=== PATIENT | female | born 1940 | race Caucasian/White ===

== ENCOUNTER 2017-01-25 11:18 | Inpatient (IN) | payer MEDICARE ==
[~2017-01-25] VITALS: Ht 170.2 cm; Wt 81.6 kg
--- NOTE | 2017-01-28 09:05 | ER ---
ADMIT: 01/25/2017 RM/LOC: 503 [facility]#: [id number] [facility] [id number] [address] [address] MARTINEZ ESCALANTEEN Mere [address] [place] [address] Emergency Room Report SEX: F AGE: 76 : 1940 DATE: 01/25/2017 CHIEF COMPLAINT: Fall, injury to left leg. HISTORY OF PRESENT ILLNESS: This is a pleasant 76-year-old, white female, who presents [place] the [place] to [place]. She did arrive by EMS. She received fentanyl in the field for pain control. Continues to rate her pain as an 8/10. Complaining primarily of left hip and thigh pain. She states it is starting to radiate lower down in her left leg. Denies hitting her head. No loss of consciousness. She remembers coming to the hospital. She otherwise felt well today. Did complain of some urinary frequency. Definitely has some weakness now which she thinks is secondary to her pain. PAST MEDICAL HISTORY: 1. Coronary artery disease. 2. Diabetes. 3. Hypertension. 4. Hyperlipidemia. 5. Sleep apnea. COURSE IN THE EMERGENCY ROOM: PHYSICAL EXAMINATION: GENERAL: The patient is seen and examined. She is afebrile and nontoxic. She is in a mild amount of distress secondary to the pain. NECK: Nontender. She has painless range of motion. HEENT: Eyes; pupils are equal and reactive. Extraocular muscles intact. ENT; normal airway. RESPIRATORY: Chest is nontender. No respiratory distress. No wheezes, rhonchi, or rales. HEART: Regular rate and rhythm. ABDOMEN: Soft and nontender. NEURO: She is alert and oriented x4. Sensation is normal in the lower extremities compared bilaterally. SKIN: Warm, dry, and intact. EXTREMITIES: She does have some tenderness to palpation over the proximal left femur. The leg is slightly shortened and externally rotated. She does have good pulses compared bilaterally. Skin is warm and dry in the distal extremities. She was given morphine and Zofran for pain control in the department. I did get basic labs on her today. Consulted with Dr. Jack who saw the patient and recommended ORIF of the left hip. I did phone Dr. Rodriguez, her primary care provider and narrated him about the situation. He will admit the patient for planned procedure tomorrow. IMPRESSION: ADMIT: 01/25/2017 RM/LOC: 503 [facility] MR#: [id number] [address] [address] ALYSSIA ESCALANTE [address] [place] [address] Emergency Room Report SEX: F AGE: 76 : 1940 1. Proximal left femur fracture. 2. Coronary artery disease. 3. Diabetes. 4. Hypertension. 5. Hyperlipidemia. 6. Sleep apnea. DISPOSITION: Patient will be admitted to Med/Surg in the care Dr. Rodriguez. We will consult Dr. Jack for planned open reduction and internal fixation of the left hip tomorrow. Questions sought and answered to the best of my ability and patient's satisfaction. Discharged to the floor in stable condition. MARLENE Justice / Miguel Abdul MD / modl JOB #: [id number] CC: Nathanael Rodriguez MD, Attending Physician Nathanael Rodriguez MD, Family Physician
--- NOTE | 2017-01-29 08:50 | HP ---
ADMIT: 01/25/2017 RM/LOC: 503 [facility] MR#: [id number] [facility]#: [id number] [address] [address] MARTINEZ ESCALANTEEN Mere [address] [place] [address] History and Physical SEX: F AGE: 76 : 1940 DATE OF SERVICE: CHIEF COMPLAINT: Fall with hip pain. HISTORY OF PRESENT ILLNESS: This is a 76-year-old female. She was at home. Once walking her dog, encountered another dog, got twisted up and fell. She lost her balance and landed on her right hip. She had immediate pain and was brought to the emergency room. She was found to have a right intertrochanteric fracture. Other than the hip pain, she denies any other symptoms other than she has been struggling with some urinary tract infection. She was being evaluated at [facility]. She is having some more urinary issues today as well. Other than that, she is feeling okay. PAST MEDICAL HISTORY: Significant for coronary artery disease status post DC and stent placement. She has hypertension, hyperlipidemia, osteoarthritis, and history of diabetes. ALLERGIES: NONE. FAMILY HISTORY: Reviewed, but noncontributory. SOCIAL HISTORY: She is . Currently, retired. Enjoys walking her dog. REVIEW OF SYSTEMS: Other complete review of systems is negative except as above. PHYSICAL EXAMINATION: VITAL SIGNS: Temperature 96.7, pulse 61, respirations 18, blood pressure 160/79, and oxygen saturation 96% on room air. GENERAL: This is a well-appearing 76-year-old female. She is in no apparent distress. She is alert. She is oriented. HEENT: Pupils equal, round, and reactive to light and accommodation. Her extraocular muscles are intact. Her throat is clear. Head is normocephalic and atraumatic. Trachea is midline. Thyroid not palpable. NECK: Supple. HEART: Regular rate and rhythm. LUNGS: Clear to auscultation bilaterally. ABDOMEN: Soft, without any tenderness. EXTREMITIES: Lower extremities have no edema. Left lower extremity is shortened and externally rotated. She can move all extremities minus her right lower extremity equally bilaterally. SKIN: Tanned, warm, and dry. LABORATORY AND X-RAY DATA: Chest x-ray shows some mild hyperinflation with some bronchial wall thickening, which is chronic for her. White count 7.0, hemoglobin 12.9, and platelets of 257. The x-ray revealed a fracture. INR is 1.03. PTT is mildly elevated. Sodium 143, potassium 4.0, chloride 108, bicarb 27, BUN 16, creatinine 0.8, and glucose 120. Liver tests are normal. Calcium 9.7. ADMIT: 01/25/2017 RM/LOC: 503 [facility] MR#: [id number] [facility] [address] [address] ALYSSIA ESCALANTE [address] [place] [address] History and Physical SEX: F AGE: 76 : 1940 ASSESSMENT AND PLAN: 1. Left intertrochanteric fracture. 2. Coronary artery disease. 3. Hypertension. 4. Hyperlipidemia. 5. Diabetes. PLAN: The patient will be admitted to the hospital. We will continue her on her same home regimen of medications minus her anti-platelet agents, which we will hold until postoperatively. We will control her pain as well, and she has been seen by Orthopedics, and she is set up for a surgery tomorrow. Nathanael Rodriguez MD/ angela JOB #: [id number] CC: Nathanael Rodriguez, Attending Physician Nathanael Rodriguez, Family Physician
--- NOTE | 2017-02-01 21:16 | OR ---
ADMIT: 01/25/2017 RM/LOC: 503 [facility] MR#: [id number] [address] [address] MARTINEZ ESCALANTEEN [address] [place] [address] Operative/Delivery Room Report SEX: F AGE: 76 : 1940 SURGERY DATE: 01/26/2017 SURGEON: Josue Jack MD PREOPERATIVE DIAGNOSIS: Left intertrochanteric hip fracture. POSTOPERATIVE DIAGNOSIS: Left comminuted 4-part intertrochanteric hip fracture. PROCEDURE: Left long trochanteric femoral nailing. PEDIATRIC IMMUNOLOGIST: MARLENE Vaughn. COMPLICATIONS: None. ESTIMATED BLOOD LOSS: 50 mL. COMPONENTS: 1. A 400 mm x 11 mm long Synthes TFN nail. 2. A 100 mm spiral blade. 3. A 36 mm locking bolt. DESCRIPTION OF PROCEDURE: The patient was taken to the operating room, received a general anesthetic, placed on a fracture table. Right leg was abducted out of the field. Left leg was placed in a traction boot. A closed reduction was performed. There was a comminuted 4-part fracture with a large trochanteric fragment extended fairly distally. Because of the 4-part, we elected to use a long TFN. At that point, the hip was prepped and draped in a standard fashion. An incision was made above the tip of the trochanter. Dissection was carried through the subcutaneous tissue. Deep fascia divided. Guide pin placed through the fracture site down the medullary canal. At that point, used a April tree reamer and opened up the proximal femur. At that point, placed a long guidewire down to the level of the patella. We reamed the ADMIT: 01/25/2017 RM/LOC: 503 [facility] MR#: [id number] 2620 [facility] [address] [place], [place] [address] ALYSSIA ESCALANTE [address] [place] [address] Operative/Delivery Room Report SEX: F AGE: 76 : 1940 canal up to a 12.5 reamer. We elected to use an 11 mm yamel, passed a 400 mm x 11 mm Synthes TFN nail down the intramedullary canal. At that point, placed a guide pin in the center of the femoral head on AP lateral images using an external jig. We then reamed the lateral cortex, reamed the femoral head, and impacted 100 mm spiral blade into the femoral head with good purchase. We locked it proximally with a locking bolt. At that point, we removed the external jig. AP lateral images confirmed good fracture reduction and good placement of the hardware. We then used a radiolucent drill, placed a 46 mm locking bolt distally through the dynamic hole with no undue difficulty. At that point, we irrigated out the wounds. Closed the deep fascia with 0 Vicryl, subcutaneous with 2-0 Vicryl, and lj in the skin. Applied sterile dressings. Taken to recovery room in stable condition. No complications. Josue Jack MD/ angela JOB #: [id number] CC: Nathanael Rodriguez, Attending Physician Nathanael Rodriguez, Family Physician
[2017-02-09] MEDS ORDERED: XARELTO10 MG PO (15:12)
[2017-02-09] MEDS ORDERED: FENOFIBRATE160 MG PO (15:12)
[2017-02-09] MEDS ORDERED: PLAVIX75 MG PO (15:12)
[2017-02-09] MEDS ORDERED: LOPRESSOR DPS50 MG PO (15:13)
[2017-02-09] MEDS ORDERED: FLEXERIL DPS5 MG PO (15:13)
[2017-02-09] MEDS ORDERED: LIPITOR80 MG PO (15:13)
[2017-02-09] MEDS ORDERED: MILK OF MAGNESI10 ML PO (15:13)
[2017-02-09] MEDS ORDERED: NITROSTAT0.4 MG SL (15:14)
[2017-02-09] MEDS ORDERED: DAILY MULTIPLE1 EAC1 PO (15:14)
[2017-02-09] MEDS ORDERED: TYLENOL DPS325 MG PO (15:14)
[2017-02-09] MEDS ORDERED: OXY IR DPS5 MG PO (15:14)
[2017-02-09] MEDS ORDERED: GLUCOSAMINE &1 EAC1 PO (15:14)
[2017-02-09] MEDS ORDERED: ASA CHILDREN'S81 MG PO (15:15)
[2017-02-09] MEDS ORDERED: VITAMIN D1000 UNI1 PO (15:15)
--- NOTE | 2017-02-13 08:54 | DS ---
ADMIT: 01/25/2017 RM/LOC: 503 [facility] MR#: [id number] [facility]#: [id number] [address] [address] MARTINEZ ESCALANTEEN Mere [address] [facility] [place] [address] General Discharge Summary SEX: F AGE: 76 : 1940 ADMISSION DATE: 01/25/2017 DISCHARGE DATE: 01/30/2017 FINAL DIAGNOSES: 1. Hip fracture. 2. Coronary artery disease. 3. Anemia of acute blood loss secondary to fracture and anticoagulants. 4. Hypertension. 5. Hyperlipidemia. 6. Diabetes. REASON FOR ADMISSION: The patient was admitted after a fall. She was found to have a hip fracture. She underwent hip fracture repair without any difficulty. She had some postop anemia and felt a little weak. She also has some postop nausea, which gradually did improve. She was getting along okay, but still needed quite a bit of help, so she was set up for IRU and so she was transferred to the IRU on 01/30/2017. We did give her iron infusion on 01/27/2017, and her blood count did stabilize. It was 7.0 on 01/29/2017; on 01/30/2017, hemoglobin was 7.9, so we felt comfortable that it was trending up, so we set her up to be discharged. DISCHARGE MEDICATIONS: 1. Lipitor 80 mg daily. 2. Lopressor 50 mg b.i.d. 3. OxyIR 5 mg daily in the morning and p.r.n. 4. Senokot-S one tab b.i.d. 5. Fenofibrate 160 mg daily. 6. Xarelto 10 mg daily. 7. Plavix 75 mg daily. 8. Metoprolol 25 mg b.i.d. She is 50% weight bearing. She will have PT and OT. She will see Dr. Lott up in rehab and will follow up with the orthopedic PA in 2 weeks' time. Nathanael Rodriguez MD/ angela JOB #: [id number] CC: Nathanael Rodriguez MD, Attending Physician Nathanael Rodriguez MD, Family Physician
--- NOTE | 2017-02-23 16:15 | CO ---
ADMIT: 01/25/2017 RM/LOC: 503 [facility] MR#: [id number] [address] [place] [address] ALYSSIA ESCALANTE [address] [place] [address] Consultation Report SEX: F AGE: 76 : 1940 Corrected: 01/26/2017 0518 njv and 01/26/2017 1117 DATE OF CONSULTATION: 01/25/2017 ATTENDING PHYSICIAN: Nathanael Rodriguez CONSULTING PHYSICIAN: Josue Jack MD CHIEF COMPLAINT: Hip pain. HISTORY OF PRESENT ILLNESS: The patient is a 76-year-old female. She was at home, got twisted and fell, lost her balance landing on her left hip. Had acute pain, brought to the emergency room, found to have left intertrochanteric fracture. We were called regarding further evaluation and treatment. PAST MEDICAL HISTORY: Past medical problems include coronary artery disease, hypertension, hyperlipidemia, and sleep apnea. MEDICATIONS: Include: 1. Aspirin. 2. Lisinopril. 3. Metoprolol. 4. Metformin. 5. Famotidine. 6. Simvastatin. 7. Plavix. ALLERGIES: NONE. SOCIAL HISTORY: Lives at home. REVIEW OF SYSTEMS: Negative. PHYSICAL EXAMINATION: GENERAL: 76-year-old female. EXTREMITIES: She has moderate swelling to the left hip. The left lower extremity is short and externally rotated. Pain with any motion. Good pulses. Normal sensation. Full motor function. No other areas of pain or tenderness. DIAGNOSTIC DATA: X-rays AP pelvis, AP lateral left hip shows a left comminuted intertrochanteric hip fracture. No other abnormalities. ADMIT: 01/25/2017 RM/LOC: 503 [facility] MR#: [id number] [address] [place], [place] [address] ALYSSIA ESCALANTE [address] [place] [address] Consultation Report SEX: F AGE: 76 : 1940 IMPRESSION: 1. Left comminuted intertrochanteric hip fracture. 2. Anticoagulation. 3. Hypertension. 4. Coronary artery disease. PLAN: At this point, we will admit her to the hospital, hold Plavix. Dr. Rodriguez will see her for primary care and clearance. She is aware of risks, benefits, and options and agreed to proceed with left hip open reduction and internal fixation with trochanteric femoral nailing. Josue Jack MD/ angela JOB #: [id number] CC: Nathanael Rodriguez, Attending Physician Nathanael Rodriguez, Family Physician Corrected: 01/26/2017 0518 njv and 01/26/2017 1117
== END 2017-01-30 13:20 | disposition short-term general hospital (02) | DRG 481 ==
LOC: ER 11:18 → 5MS 12:20
PROVIDERS: ADMIT Internal Medicine
PROC: 0QS704Z Reposition Left Upper Femur with Internal Fixation Device, Open Approach (ICD-10-PCS; principal; 2017-01-26)
DX: S72.142A Displaced intertrochanteric fracture of left femur, initial encounter for closed fracture (principal); D62 Acute posthemorrhagic anemia; E11.9 Type 2 diabetes mellitus without complications; I10 Essential (primary) hypertension; W18.30XA Fall on same level, unspecified, initial encounter; I25.10 Atherosclerotic heart disease of native coronary artery without angina pectoris; M19.90 Unspecified osteoarthritis, unspecified site; I25.2 Old myocardial infarction; E78.5 Hyperlipidemia, unspecified; G47.30 Sleep apnea, unspecified; Z79.82 Long term (current) use of aspirin; Z79.01 Long term (current) use of anticoagulants; Z95.5 Presence of coronary angioplasty implant and graft

== ENCOUNTER 2017-01-30 13:22 | Inpatient (IN) | payer MEDICARE ==
[~2017-01-30] VITALS: Ht 167.6 cm; Wt 74.1 kg
[2017-02-09] MEDS ORDERED: PLAVIX75 MG PO (15:12)
[2017-02-09] MEDS ORDERED: XARELTO10 MG PO (15:12)
[2017-02-09] MEDS ORDERED: FENOFIBRATE160 MG PO (15:12)
[2017-02-09] MEDS ORDERED: FLEXERIL DPS5 MG PO (15:13)
[2017-02-09] MEDS ORDERED: LOPRESSOR DPS50 MG PO (15:13)
[2017-02-09] MEDS ORDERED: MILK OF MAGNESI10 ML PO (15:13)
[2017-02-09] MEDS ORDERED: LIPITOR80 MG PO (15:13)
[2017-02-09] MEDS ORDERED: DAILY MULTIPLE1 EAC1 PO (15:14)
[2017-02-09] MEDS ORDERED: TYLENOL DPS325 MG PO (15:14)
[2017-02-09] MEDS ORDERED: GLUCOSAMINE &1 EAC1 PO (15:14)
[2017-02-09] MEDS ORDERED: NITROSTAT0.4 MG SL (15:14)
[2017-02-09] MEDS ORDERED: OXY IR DPS5 MG PO (15:14)
[2017-02-09] MEDS ORDERED: VITAMIN D1000 UNI1 PO (15:15)
[2017-02-09] MEDS ORDERED: ASA CHILDREN'S81 MG PO (15:15)
--- NOTE | 2017-03-04 08:52 | DS ---
ADMIT: 01/30/2017 RM/LOC: 610 [facility] MR#: [id number] [address] [facility] [address] [place] [address] AVAANGELAALYSSIA K [address] [facility] [place] [address] General Discharge Summary SEX: F AGE: 76 : 1940 ADMISSION DATE: 01/30/2017 DISCHARGE DATE: 02/08/2017 DISCHARGE DIAGNOSIS: Orthopedic disorder .11, status post unilateral hip fracture, S72.142S displaced intertrochanteric fracture of the left femur sequela, onset 01/25/2017, comorbid conditions per initial H and P. Other diagnoses per hospital course below. HOSPITAL COURSE: Please see my initial H and P for details prior to transfer to the IRU. In brief, the patient had a left comminuted 4-part intertrochanteric hip fracture status post long TFN on 01/26/2017, partial weightbearing to left lower limb with acute blood loss anemia, hematuria, left lower extremity pain, insomnia, and constipation. Plavix was continued. Villeda discontinued just prior to transfer the IRU. Plavix and Xarelto continued for prophylaxis. No aspirin. Hydrocodone discontinued. Started OxyIR for pain p.r.n. bowel regimen was adjusted. PVRs were obtained and were normal. Tylenol and tramadol used for pain first, OxyIR second. May overlap those medications. Lipitor changed for hyperlipidemia. Lab was checked regularly. Bowel regimen again adjusted. Pharmacist followed optimize medication management. Dietitian followed to optimize nutrition. UA with micro obtained due to some urinary symptoms. Due to some side effects, Ultram was stopped. OxyIR scheduled before therapies and then every 3 hours as needed. Pain was not well enough controlled on the tramadol, so we just did the OxyIR instead, but we did schedule the Tylenol extra strength 500 mg 4 times a day. Flexeril was started p.r.n. leg cramps. GGT was added to lab due to some concern with her bilirubin being high. Folate was also checked. Bowel regimen again adjusted. OxyIR increased to 10 mg. Scheduled OxyIR discontinued. Pain was better controlled. Scheduled Tylenol discontinued. Milk of magnesia given for constipation. Lab was checked before discharge. The patient was medically stable at the time of discharge. ADMIT: 01/30/2017 RM/LOC: 610 [facility] MR#: [id number] [address] [address] AVA ALYSSIA K [address] [place] [address] General Discharge Summary SEX: F AGE: 76 : 1940 Please see IRU interdisciplinary discharge summary for details regarding progress in therapy. DISCHARGE DISPOSITION: Home with . We will continue outpatient PT. Obtained all equipment needed for home. Family provided transport upon discharge. DISCHARGE MEDICATIONS: Please see discharge med rec. To continue Xarelto for 17 more days, 30 days total postop anticoagulation. Flexeril was given #30. OxyIR 5 mg was given #30 of those with no refills. FOLLOWUP: Orthopedics on February 15. PT to start on February 10. Follow up with primary care doctor as regularly scheduled. Lucius Lott MD/ angela JOB #: [id number] CC:
== END 2017-02-08 15:30 | disposition home or self-care (01) | DRG 560 ==
LOC: 6IRU 13:22
PROVIDERS: ADMIT Physical Medicine & Rehabilitation
PROC: F07Z9YZ Gait Training/Functional Ambulation Treatment using Other Equipment (ICD-10-PCS; principal; 2017-01-30)
PROC: F08Z1FZ Dressing Techniques Treatment using Assistive, Adaptive, Supportive or Protective Equipment (ICD-10-PCS; principal; 2017-01-30)
DX: S72.142D Displaced intertrochanteric fracture of left femur, subsequent encounter for closed fracture with routine healing (principal); D62 Acute posthemorrhagic anemia; E11.9 Type 2 diabetes mellitus without complications; E83.51 Hypocalcemia; I10 Essential (primary) hypertension; E78.5 Hyperlipidemia, unspecified; I25.10 Atherosclerotic heart disease of native coronary artery without angina pectoris; G47.00 Insomnia, unspecified; M19.90 Unspecified osteoarthritis, unspecified site; K59.00 Constipation, unspecified; T40.4X5A Adverse effect of other synthetic narcotics, initial encounter; W01.0XXD Fall on same level from slipping, tripping and stumbling without subsequent striking against object, subsequent encounter